=== PATIENT | male | born 1965 | race Caucasian/White ===

== ENCOUNTER 2018-01-25 14:12 | Emergency (ER) | payer OTHER, SELFPAY ==
[~2018-01-25] VITALS: Ht 190.5 cm; Wt 190.0 kg
[2018-01-25] MEDS ORDERED: PANT40TA5 PO (15:23)
[2018-01-25] MEDS ORDERED: POTA20TA6 PO (15:23)
[2018-01-25] MEDS ORDERED: FURO20TA3 PO (15:23)
[2018-01-25] MEDS ORDERED: SUCR1TAB PO (15:23)
[2018-01-25] MEDS ORDERED: PRAM1TAB PO (15:23)
[2018-01-25 15:28] LABS: BASOPHILS # (AUTO) 0.02 x10^3/uL (0-0.1); BASOPHILS % (AUTO) 0 % (0-1); EOSINOPHILS # (AUTO) 0.25 x10^3/uL (0-0.4); EOSINOPHILS % (AUTO) 3 % (1-7); LYMPHOCYTES # (AUTO) 1.61 x10^3/uL (1-3.4); LYMPHOCYTES % (AUTO) 21 % (22-44); MD NO; MEAN CORPUSCULAR HEMOGLOBIN 25.7 pg (27.5-34.5); MEAN CORPUSCULAR HGB CONC 31.1 g/dL (33.2-36.2); MEAN CORPUSCULAR VOLUME 82.6 fL (81-97); MEAN PLATELET VOLUME 8.4 fL (7.4-10.4); MONOCYTES # (AUTO) 0.46 x10^3/uL (0.2-0.8); MONOCYTES % (AUTO) 6 % (2-9); NEUTROPHILS # (AUTO) 5.31 x10^3/uL (1.8-6.8); NEUTROPHILS % (AUTO) 69 % (42-75); PLATELET COUNT 264 x10^3/uL (130-400); RED BLOOD COUNT 5.03 x10^6/uL (4.38-5.82); RED CELL DISTRIBUTION WIDTH 20.2 % (9.4-14.8)
[2018-01-25 15:44] LABS: ALANINE AMINOTRANSFERASE 33 U/L (12-78); ANION GAP 7 mmol/L (5-15); CALCIUM 8.7 mg/dL (8.5-10.1); CHLORIDE 106 mmol/L (98-107); CREATININE 0.68 mg/dL (0.7-1.3)
[2018-01-25 15:48] LABS: ALKALINE PHOSPHATASE 90 U/L (45-117); BILIRUBIN,TOTAL 0.5 mg/dL (0.2-1.0); TOTAL PROTEIN 6.8 g/dL (6.4-8.2); TROPONIN I < 0.015 ng/mL (0.000-0.045)
[2018-01-25] MEDS ORDERED: SODIUM CHLORIDE FLUSH 10ML SYR IVF ONE (16:30)
[2018-01-25] MEDS ORDERED: OMNIPAQUE 350 MG/ML, 150 ML BOTTLE ONE (17:19)
[2018-01-25 18:53] VITALS: BP 109/63
== END 2018-01-25 18:56 | disposition home or self-care (01) ==
LOC: ED 17:28
DX: J20.8 Acute bronchitis due to other specified organisms (principal); B97.89 Other viral agents as the cause of diseases classified elsewhere
CPT/HCPCS: 36600; 71045; 71275; 80053; 82803; 83880; 84484; 85025; 93005; 99285; Q9967

== ENCOUNTER → 2018-06-14 | Outpatient (CLI) | payer OTHER ==
[~2018-06-14] MED LIST: ALLO300T PO; FURO-92 PO; FURO20TA3 PO; PANT40TA5 PO; POTA20TA6 PO; PRAM1TAB PO; SUCR1TAB PO
[2018-06-14 16:01] LABS: BASOPHILS # (AUTO) 0.07 x10^3/uL (0-0.1); BASOPHILS % (AUTO) 1 % (0-1); EOSINOPHILS # (AUTO) 0.15 x10^3/uL (0-0.4); EOSINOPHILS % (AUTO) 2 % (1-7); LYMPHOCYTES # (AUTO) 1.63 x10^3/uL (1-3.4); LYMPHOCYTES % (AUTO) 19 % (22-44); MD NO; MEAN CORPUSCULAR HEMOGLOBIN 29.9 pg (27.5-34.5); MEAN CORPUSCULAR VOLUME 90.7 fL (81-97); MEAN PLATELET VOLUME 8.6 fL (7.4-10.4); MONOCYTES # (AUTO) 0.51 x10^3/uL (0.2-0.8); MONOCYTES % (AUTO) 6 % (2-9); NEUTROPHILS # (AUTO) 6.45 x10^3/uL (1.8-6.8); NEUTROPHILS % (AUTO) 73 % (42-75); PLATELET COUNT 309 x10^3/uL (130-400); RED BLOOD COUNT 5.16 x10^6/uL (4.38-5.82); RED CELL DISTRIBUTION WIDTH 14.1 % (9.4-14.8)
[2018-06-14 16:11] LABS: ALBUMIN 3.9 g/dL (3.4-5.0); ANION GAP 6 mmol/L (5-15); CALCIUM 9.2 mg/dL (8.5-10.1); CHLORIDE 106 mmol/L (98-107)
[2018-06-14 16:28] LABS: % IRON SATURATION 15 % (20-55); ALANINE AMINOTRANSFERASE 27 U/L (12-78); ALKALINE PHOSPHATASE 99 U/L (45-117); BILIRUBIN,TOTAL 0.7 mg/dL (0.2-1.0); CHOL/HDL RATIO 4.6; CHOLESTEROL, TOTAL 194 mg/dL (140-239); CREATININE 0.93 mg/dL (0.7-1.3); HDL CHOL % 22 % (26-37); HDL CHOLESTEROL (DIRECT) 42 mg/dL (40-60); IRON LEVEL 59 mcg/dL (65-175); LDL CHOLESTEROL,CALCULATED 120 mg/dL (54-169); LDL/HDL RATIO 2.9 (0.5-3.0); PREALBUMIN 23.8 mg/dL (20.0-40.0); TOTAL IRON BINDING CAPACITY 388 mcg/dL (250-450); TOTAL PROTEIN 8.3 g/dL (6.4-8.2); TRANSFERRIN 295 mg/dL (200-360); TRIGLYCERIDES 158 mg/dL (50-200); VLDL CHOLESTEROL 32 mg/dL (0-25)
[2018-06-14 16:33] LABS: FOLATE LEVEL > 20.0 ng/mL (3.1-17.5)
== END | disposition home or self-care (01) ==
LOC: STAR 14:53
PROVIDERS: ATTEND Thoracic Surgery (Cardiothoracic Vascular Surgery)
DX: Z01.818 Encounter for other preprocedural examination (principal); K44.9 Diaphragmatic hernia without obstruction or gangrene
CPT/HCPCS: 36415; 71046; 80053; 80061; 82306; 82728; 82746; 83540; 83550; 83970; 84134; 84425; 84466; 85025; 93005

== ENCOUNTER 2018-06-19 06:07 | Inpatient (IN) | payer OTHER ==
[~2018-06-19] VITALS: Ht 190.5 cm; Wt 193.0 kg
[2018-06-19] MEDS ORDERED: BUPIVACAINE/PF-EPI 0.5% 1:200K ONE (06:34)
[2018-06-19] MEDS ORDERED: MIDAZOLAM 1 MG/ML, 2ML ONE ×2 (06:39→09:30)
[2018-06-19] MEDS ORDERED: FENTANYL PF 250 MCG/5ML ONE ×3 (06:39→08:57)
[2018-06-19] MEDS ORDERED: LACTATED RINGERS 1,000 ML IV SCH (06:39)
[2018-06-19] MEDS ORDERED: ACETAMINOPHEN 1,000 MG/100 ML IV IVPB ONE (07:00)
[2018-06-19] MEDS ORDERED: SCOPOLAMINE PATCH, 1.5MG PATCH.TD72 TD ONE (07:00)
[2018-06-19] MEDS ORDERED: LABETALOL 5MG/ML, 20ML IV PRN (07:30)
[2018-06-19] MEDS ORDERED: ONDANSETRON 2MG/ML, 2ML IV PRN (07:30)
[2018-06-19] MEDS ORDERED: MEPERIDINE/PF 25MG/0.5ML IVPush PRN (07:30)
[2018-06-19] MEDS ORDERED: OXYcodone 5 MG/5 ML ORAL.SOL UDC PO PRN (07:30)
[2018-06-19] MEDS ORDERED: ONDANSETRON 2MG/ML, 2ML ONE (07:38)
[2018-06-19] MEDS ORDERED: CEFAZOLIN 1,000 MG ONE (07:38)
[2018-06-19] MEDS ORDERED: hydrALAzine 20 MG/ML, 1ML ONE (07:38)
[2018-06-19] MEDS ORDERED: ROCURONIUM 10 MG/ML,10ML ONE (07:38)
[2018-06-19] MEDS ORDERED: PROPOFOL 10 MG/ML, 20ML ONE (07:38)
[2018-06-19] MEDS ORDERED: SUCCINYLCHOLINE 20 MG/ML, 10ML ONE (07:38)
[2018-06-19] MEDS ORDERED: LABETALOL 20 MG/4 ML ONE ×3 (07:38→08:46)
[2018-06-19] MEDS ORDERED: DEXAMETHASONE 4 MG/ML, 1ML ONE (07:38)
[2018-06-19] MEDS ORDERED: SUGAMMADEX 200 MG/2 ML IVPush ONE (09:16)
[2018-06-19] MEDS ORDERED: FENTANYL PF 100 MCG/2ML ONE (09:30)
[2018-06-19] MEDS ORDERED: HYDROmorphone 2 MG/ML, 1ML ONE (09:30)
[2018-06-19] MEDS: FENTANYL PF 100 MCG/2ML IV PRN ×2 (09:33→09:51)
[2018-06-19] MEDS: LACTATED RINGERS 1,000 ML IV SCH ×2 (09:33→18:24)
[2018-06-19] MEDS: HYDROmorphone 2 MG/ML, 1ML IVPush PRN ×4 (09:34→10:12)
[2018-06-19] MEDS: MIDAZOLAM 1 MG/ML, 2ML IV PRN ×2 (09:37→10:01)
[2018-06-19] MEDS: ACETAMINOPHEN 1,000 MG/100 ML IV IVPB SCH ×3 (10:00→20:10)
[2018-06-19] MEDS ORDERED: DIPHENHYDRAMINE 50 MG/ML, 1ML IV PRN (10:00)
[2018-06-19] MEDS ORDERED: ENALAPRILAT 1.25 MG/ML, 2ML IV PRN (10:00)
[2018-06-19] MEDS ORDERED: PHENOL THROAT SPRAY BOTTLE MM PRN (10:00)
[2018-06-19] MEDS ORDERED: DIAZEPAM 5 MG/ML, 2ML IVPush PRN (10:00)
[2018-06-19] MEDS ORDERED: hydrALAzine 20 MG/ML, 1ML IVPush PRN (10:00)
[2018-06-19] MEDS ORDERED: ONDANSETRON 2MG/ML, 2ML IVPush PRN (10:00)
[2018-06-19] MEDS ORDERED: OXYMETAZOLINE NASAL SPRAY 0.05%, 15ML NAS PRN (10:00)
[2018-06-19] MEDS ORDERED: PROMETHAZINE 12.5 MG SUPP PR PRN (10:00)
[2018-06-19] MEDS ORDERED: PROMETHAZINE 25 MG/ML, 1ML IM PRN (10:00)
[2018-06-19] MEDS ORDERED: LORazepam 2 MG/ML, 1ML ONE (10:13)
[2018-06-19] MEDS: LORazepam 2 MG/ML, 1ML IV PRN ×2 (10:17→23:07)
[2018-06-19] MEDS: FAMOTIDINE 20 MG/2 ML IVPush SCH ×2 (12:30→21:06)
[2018-06-19] MEDS: morphine SULFATE 10 MG/ML, 1ML IVPush PRN ×4 (12:30→13:27)
[2018-06-19] MEDS: OXYMETAZOLINE NASAL SPRAY 0.05%, 15ML NAS SCH ×2 (12:31→21:10)
[2018-06-19 13:14] VITALS: BP 123/76
[2018-06-19] MEDS: KETOROLAC 30 MG/1 ML IVPush PRN (14:11)
[2018-06-19] MEDS ORDERED: DIAZEPAM 5 MG/ML, 2ML IV PRN (17:00)
[2018-06-19] MEDS: HYDROcodone/APAP 7.5-325MG/15ML UDC PO PRN (18:21)
[2018-06-19 20:28] VITALS: BP 158/84
[2018-06-19 23:26] VITALS: BP 157/83
[2018-06-20] MEDS: LORazepam 2 MG/ML, 1ML IV PRN (00:11)
[2018-06-20] MEDS: KETOROLAC 30 MG/1 ML IVPush PRN ×2 (00:17→08:35)
[2018-06-20] MEDS: HYDROcodone/APAP 7.5-325MG/15ML UDC PO PRN ×4 (00:17→12:20)
[2018-06-20] MEDS: LACTATED RINGERS 1,000 ML IV SCH ×2 (01:42→10:00)
[2018-06-20 04:40] VITALS: BP 164/97
[2018-06-20 05:22] LABS: BASOPHILS # (AUTO) 0.01 x10^3/uL (0-0.1); BASOPHILS % (AUTO) 0 % (0-1); EOSINOPHILS % (AUTO) 0 % (1-7); LYMPHOCYTES # (AUTO) 1.08 x10^3/uL (1-3.4); LYMPHOCYTES % (AUTO) 14 % (22-44); MD NO; MEAN CORPUSCULAR HEMOGLOBIN 29.8 pg (27.5-34.5); MEAN CORPUSCULAR VOLUME 90.3 fL (81-97); MEAN PLATELET VOLUME 8.9 fL (7.4-10.4); MONOCYTES # (AUTO) 0.53 x10^3/uL (0.2-0.8); MONOCYTES % (AUTO) 7 % (2-9); NEUTROPHILS # (AUTO) 5.99 x10^3/uL (1.8-6.8); NEUTROPHILS % (AUTO) 79 % (42-75); PLATELET COUNT 288 x10^3/uL (130-400); RED BLOOD COUNT 4.83 x10^6/uL (4.38-5.82); RED CELL DISTRIBUTION WIDTH 13.9 % (9.4-14.8)
[2018-06-20 05:25] LABS: CHLORIDE 105 mmol/L (98-107)
[2018-06-20 05:31] LABS: ALBUMIN 3.6 g/dL (3.4-5.0); ANION GAP 9 mmol/L (5-15); CREATININE 0.78 mg/dL (0.7-1.3)
[2018-06-20 07:55] VITALS: BP 158/89
[2018-06-20] MEDS: OXYMETAZOLINE NASAL SPRAY 0.05%, 15ML NAS SCH (08:20)
[2018-06-20] MEDS: ALLOPURINOL 300 MG TABLET PO SCH ×2 (08:20→08:23)
[2018-06-20] MEDS: FAMOTIDINE 20 MG/2 ML IVPush SCH (08:20)
[2018-06-20] MEDS ORDERED: HYDR473S51 PO (12:46)
== END 2018-06-20 13:10 | disposition home or self-care (01) | DRG 621 ==
LOC: ORIP 06:07 → 4NOR 10:44 → DCLOUNGE 06-20 12:44
PROVIDERS: ADMIT Thoracic Surgery (Cardiothoracic Vascular Surgery); ATTEND Thoracic Surgery (Cardiothoracic Vascular Surgery)
PROC: 0DB64Z3 Excision of Stomach, Percutaneous Endoscopic Approach, Vertical (ICD-10-PCS; principal; 2018-06-19 07:30)
DX: E66.01 Morbid (severe) obesity due to excess calories (principal); G47.30 Sleep apnea, unspecified; Z68.43 Body mass index [BMI] 50.0-59.9, adult; G89.29 Other chronic pain; M54.9 Dorsalgia, unspecified; M10.9 Gout, unspecified
CPT/HCPCS: 36415; J3490; 80048; 82040; 85025; G0378; J0131; J0690; J1100; J1170; J1885; J2250; J2405; J2704; J3010; J0330; J0360; J2060; J2270; J7120